=== PATIENT | female | born 1955 ===

== ENCOUNTER 2018-09-13 14:12 | Emergency (ER) | payer MEDICARE ==
[2018-09-13 14:13] VITALS: BMI 33.6
[2018-09-13] MEDS ORDERED: Sodium Chloride 0.9% 1,000 ML IV SCH (14:45)
[2018-09-13] MEDS ORDERED: Sodium Chloride 0.9% 1,000 ML ONE (14:48)
[2018-09-13] MEDS ORDERED: Morphine 4 MG/ML VIAL ONE (14:51)
--- NOTE | 2018-09-13 14:54 | C.PDOC ---
History Of Present Illness 62 y/o female presents to the ER complaining of left shoulder pain which began today. Patient states that she tripped and fell while running after her granddaughter today. Patient denies having weakness and numbness. Time Seen by Provider: 09/13/18 14:33 Chief Complaint (Nursing): Upper Extremity Problem/Injury History Per: Patient History/Exam Limitations: no limitations Onset/Duration Of Symptoms: Hrs Current Symptoms Are (Timing): Still Present Severity: Moderate Past Medical History Reviewed: Historical Data, Nursing Documentation, Vital Signs Vital Signs: Last Vital Signs Temp 97.3 F L 09/13/18 14:18 Pulse 75 09/13/18 14:18 Resp 18 09/13/18 14:18 BP 112/71 09/13/18 14:18 Pulse Ox 97 09/13/18 14:18 - Medical History PMH: Depression, HTN, Hypercholesterolemia (Not on med), Hypothyroidism, Peripheral Edema, Rheumatoid Arthritis Other Surgeries: Hx of surgeries - [facility] Procedures CYSTOGRAM NEC (05/14/14) PERCUTAN NEEDLE BIOPSY OF BREAST (06/15/04) Family History: States: No Known Family Hx - Social History Hx Alcohol Use: No Hx Substance Use: No - Immunization History Hx Tetanus Toxoid Vaccination: No Hx Influenza Vaccination: No Hx Pneumococcal Vaccination: No Review Of Systems Except As Marked, All Systems Reviewed And Found Negative. Musculoskeletal: Positive for: Other (left shoulder) Neurological: Negative for: Weakness, Numbness Physical Exam - Physical Exam Appears: Non-toxic, No Acute Distress Skin: Normal Color, Warm, Dry Head: Atraumatic, Normacephalic Eye(s): bilateral: Normal Inspection Nose: Normal Oral Mucosa: Moist Neck: Supple Chest: Symmetrical Cardiovascular: Rhythm Regular Respiratory: Normal Breath Sounds, No Rales, No Rhonchi, No Wheezing Extremity: No Normal ROM (decreased ROM in left shoulder secondary to pain), Deformity (deformity to left shoulder), Other (step-off to left shoulder) Neurological/Psych: Oriented x3, Normal Speech, Normal Motor (left shoulder), Normal Sensation (left shoulder) ED Course And Treatment O2 Sat by Pulse Oximetry: 97 (RA) Pulse Ox Interpretation: Normal - Other Rad L shoulder X-Ray: Interpreted by Me (1st film + dislo with tuberosity fx, 2nd film failed redux, 3rd film good redux of shoulder and fragment) - Physician Consult Information Outcome Of Conversation: 1600: d/w Dr. Senior- Ortho [employer] Operator- ok to re- attempt relocation despite humoral fx. 1645: communicated good reloc, will ref er to f/u in office. Medical Decision Making Medical Decision Making: L shoulder disloc w small fx, now s/p good reloc. Disposition Doctor Will See Patient In The: Office Counseled Patient/Family Regarding: Studies Performed, Diagnosis - Disposition Referrals: [facility] [Outside] [employer] [facility] [place] [Outside] [facility] [Outside] [facility] [Outside] Day Senior MD [Staff Provider] - Antoine Demarco MD [Staff Provider] - Disposition: HOME/ ROUTINE Disposition Time: 16:46 Condition: GOOD Additional Instructions: mantiene el sling [place] 1/2 hora por hora, nada caliente Ibuprofeno/advil/Motrin 400-600 mg cada 6 horas jorge alberto necessario para dolor Tramadol 50 mg (narcotico) 1 tableta cada 4-6 horas jorge alberto necessario y para dormir [place] Dr[address] Senior ([facility]) para hacer henry Prescriptions: traMADol [Ultram] 50 mg PO Q6H PRN #20 tab PRN Reason: pain Instructions: Shoulder Dislocation, Shoulder Fracture, Moderate Sedation in Adults (DC) Forms: [employer] (Wolof) Print Language: WOLOF - Clinical Impression Clinical Impression: Fracture dislocation of shoulder joint - Scribe Statement The provider has reviewed the documentation as recorded by the Anitra Dalton Provider Attestation: All medical record entries made by the Rhodaibdiana were at my direction and personally dictated by me. I have reviewed the chart and agree that the record accurately reflects my personal performance of the history, physical exam, medical decision making, and the department course for this patient. I have also personally directed, reviewed, and agree with the discharge instructions and disposition.
[2018-09-13] MEDS ORDERED: Propofol 10 mg/ml Inj (20 ML) IV ONE ×2 (15:05→17:18)
--- NOTE | 2018-09-13 15:09 | RAD ---
Date of service: 09/13/2018 PROCEDURE: Radiographs of the Left Shoulder HISTORY: ? disloc/fx COMPARISON: No prior. FINDINGS: BONES: A fracture of the humeral head-tuberosities comminuted and displaced is suggested per available images. The humerus is anterior and inferiorly dislocated from the glenoid fossa. JOINTS: Dislocation glenohumeral joint as above. Acromioclavicular joint appears normal. SOFT TISSUES: Normal. OTHER FINDINGS: None. IMPRESSION: Right humeral head tuberosity comminuted fracture-fracture fragments appear displaced laterally per frontal view. The humeral head is dislocated anteriorly and inferiorly relative to the glenoid fossa. Intact acromioclavicular joint. Comments: Study marked for PA review .
[2018-09-13] MEDS ORDERED: Propofol 10 mg/ml 1,000 MG/100 ML VIAL ONE (15:11)
[2018-09-13] MEDS ORDERED: Sodium Chloride 0.9% 500 ML IV ONE (15:36)
[2018-09-13] MEDS ORDERED: Propofol 10 mg/ml Inj (20 ML) IV STA (15:49)
--- NOTE | 2018-09-13 16:45 | CT ---
Date of service: 09/13/2018 PROCEDURE: CT left shoulder without contrast PROCEDURE: INDICATION: Plain radiographs performed earlier the same day TECHNIQUE: Multiple axial images were obtained with slice thickness of 2.5 mm. Coronal and sagittal reformatted images were obtained. Iterative reconstruction was used. Radiation dose: Total exam DLP = 448.89 mGy-cm. PROCEDURE: This CT exam was performed using one or more of the following dose reduction techniques: Automated exposure control, adjustment of the mA and/or kV according to patient size, and/or use of iterative reconstruction technique. COMPARISON: None. FINDINGS: There is an acute comminuted displaced fracture in the humeral head with 1.9 cm distraction and lateral displacement of the greater tuberosity of the humerus. There is mild impaction of the fracture fragments. There anterior inferior dislocation of the glenohumeral joint. The acromioclavicular joint is normal. IMPRESSION: Acute comminuted displaced fracture in the humeral head with 1.9 cm distraction and lateral displacement of the greater tuberosity of the humerus. Anterior inferior glenohumeral dislocation.
--- NOTE | 2018-09-13 16:47 | RAD ---
Date of service: 09/13/2018 PROCEDURE: HISTORY: s/p reduction #2 COMPARISON: Pre reduction left shoulder x-ray 09/13/2018 TECHNIQUE: Two views FINDINGS: The left humeral head tuberosity mildly comminuted fracture with displacement laterally is hree noted. On the frontal view of the humeral head projects closer to the glenoid fossa than it did previously however on the oblique attempted trans scapular view the humeral head appears to project slightly anterior and inferior to it. The oblique transscapular view is limited. IMPRESSION: Limited transscapular view. Persistent slight anterior inferior dislocation subluxation these to be considered. Comments note is made that the patient is also having a left CT shoulder exam-which should assist with joint alignment as well as number and position of fracture fragments.
[2018-09-13 16:54] VITALS: PULSE 75
--- NOTE | 2018-09-13 17:05 | RAD ---
Date of service: 09/13/2018 PROCEDURE: HISTORY: post-redux COMPARISON: Comparison is made with the 09/13/2018 study TECHNIQUE: Oblique-attempted transscapular FINDINGS: The humeral head tuberosity mildly comminuted fracture with lateral displaced fracture fragment is hree noted. Again the humeral head still appears dislocated anterior inferior relative to the glenoid fossa. IMPRESSION: Persistent anterior inferior left humeral head dislocation relative to the glenoid fossa. Similar left humeral head/tuberosity mildly comminuted mildly displaced fractures.
[2018-09-13 17:28] VITALS: BP 115/66; RESP 16; TEMP 98.2
[2018-09-13 17:29] VITALS: O2SAT 97
== END 2018-09-13 17:40 | disposition home or self-care (01) ==
LOC: C.ER 14:12
DX: S42.252A Displaced fracture of greater tuberosity of left humerus, initial encounter for closed fracture (principal); S43.015A Anterior dislocation of left humerus, initial encounter; W01.0XXA Fall on same level from slipping, tripping and stumbling without subsequent striking against object, initial encounter; Y93.02 Activity, running; I10 Essential (primary) hypertension; E78.00 Pure hypercholesterolemia, unspecified; E03.9 Hypothyroidism, unspecified
CPT/HCPCS: 23650; 73020; 73030; 73200; 96361; 96374; 96375; 99285; J1885; J2270; J2704; J7030; J7040